=== PATIENT | female | born 1935 | race Caucasian/White ===

== ENCOUNTER 2019-02-16 16:09 | Emergency (ER) | payer MEDICARE, OTHER ==
[~2019-02-16] VITALS: Ht 152.4 cm; Wt 65.8 kg
[2019-02-16 16:44] LABS: URINE BILIRUBIN NEGATIVE (Negative); URINE BLOOD NEGATIVE (Negative); URINE CLARITY CLEAR; URINE COLOR YELLOW; URINE GLUCOSE-RANDOM NEGATIVE (Negative); URINE KETONES NEGATIVE (Negative); URINE LEUKOCYTES-REFLEX TRACE (Negative); URINE NITRITE-REFLEX NEGATIVE (Negative); URINE PROTEIN NEGATIVE (Negative); URINE SPECIFIC GRAVITY <= 1.005 (1.005-1.030); URINE UROBILINOGEN 0.2 E.U./dl (0.2-1.0)
[2019-02-16] MEDS ORDERED: PRAVACHOL40 MG PO (16:46)
[2019-02-16] MEDS ORDERED: XARELTO20 MG PO (16:46)
[2019-02-16] MEDS ORDERED: CALCIUM (16:47)
[2019-02-16] MEDS ORDERED: DILTIAZEM HCL90 MG PO (16:48)
[2019-02-16] MEDS ORDERED: GLUCOSAMINE-MS1 EAC4 PO (16:48)
[2019-02-16] MEDS ORDERED: FLECAINIDE ACET50 M1 PO (16:48)
[2019-02-16] MEDS ORDERED: PROTONIX40 M1 PO (16:49)
[2019-02-16] MEDS ORDERED: ANTIVERT25 MG PO (16:49)
[2019-02-16] MEDS ORDERED: OXYBUTYNIN 5 MG5 M2 (16:49)
[2019-02-16 16:53] LABS: BACTERIA-REFLEX None Seen /HPF (None Seen); CASTS None Seen /LPF (None Seen); CRYSTALS None Seen /LPF (None Seen); SQUAMOUS NONE SEEN /LPF (0-3); URINE RBC 0-2 Rare /HPF (0-2); URINE WBC-REFLEX 0-5 Rare /HPF (0-5)
[2019-02-16 16:57] LABS: ABSOLUTE EOSINOPHILS 0.2 thou/uL (0.0-0.7); ABSOLUTE LYMPHOCYTES 1.8 thou/uL (0.8-5.3); ABSOLUTE MONOCYTES 0.8 thou/uL (0.0-1.2); ABSOLUTE NEUTROPHILS 3.6 thou/uL (1.6-8.1); BASOPHILS 0.5 %; EOSINOPHILS 3.8 %; HEMATOCRIT 42.9 % (37.0-47.0); HEMOGLOBIN 14.6 gm/dL (12.0-15.0); LYMPHOCYTES 28.1 %; MCH 31.7 pg (26.0-34.0); MCHC 34.1 g/dL (28.0-37.0); MCV 92.9 fL (80.0-100.0); MONOCYTES 12.3 %; MPV 8.3 fl. (7.2-11.1); NUCLEATED RBCS 0 /100WBC; PLATELET COUNT* 244 thou/uL (150-400); POLYS 55.3 %; RBC 4.62 mil/uL (4.20-5.00); RDW-CV 13.9 % (10.5-14.5); WBC 6.5 thou/uL (4.0-11.0)
[2019-02-16 17:09] LABS: APTT 30.5 Seconds (25.0-31.3); PROTIME 10.4 Seconds (9.20-11.50)
[2019-02-16 17:12] LABS: CALCIUM 9.1 mg/dL (8.5-10.1); CREATININE 0.7 mg/dL (0.6-1.3); POTASSIUM 4.4 mmol/L (3.5-5.1)
[2019-02-16 17:16] LABS: ALBUMIN 3.7 g/dL (3.4-5.0); TOTAL BILIRUBIN 0.5 mg/dL (<0.1-1.0); TOTAL PROTEIN 6.9 g/dL (6.4-8.2)
[2019-02-16 18:14] VITALS: BP 138/74
--- NOTE | 2019-02-19 10:39 | EKG ---
[place] [address] ELECTROCARDIOGRAM REPORT Name: SADAF JIN Room: [facility]#: [id number] Admission: 02/16/19 Attend Phys: Discharge: 02/16/19 Date of : 39 Report #: [id number] THIS REPORT FOR: //name// [facility] ED Test Date: 2019-02-16 Test Time: 17:04:31 Pat Name: SADAF JIN Department: Room: Gender: F Manager Disaster Recovery: TIMBO : 1935 Requested By: Lorena Cano Order Number: [id number] MD: Sony Napier Measurements Intervals [place] Rate: 61 P: 62 SD: 233 QRS: 69 QRSD: 118 T: 32 QT: 539 QTc: 543 Interpretive Statements Sinus rhythm Prolonged SD interval Incomplete right bundle branch block No previous ECG available for comparison Electronically Signed On 02-19-2019 10:39:20 CDT by Sony Napier [email or web address] <ELECTRONICALLY SIGNED> By: Sony Napier MD, [facility] 02/19/19 1039 1704 1704 Sony Napier MD, FACC /EPI
== END 2019-02-16 18:15 | disposition home or self-care (01) ==
LOC: M.ERS 16:09
PROVIDERS: Nurse Practitioner Family
DX: D18.09 Hemangioma of other sites (principal); J84.10 Pulmonary fibrosis, unspecified; N28.1 Cyst of kidney, acquired; I48.91 Unspecified atrial fibrillation; Z95.0 Presence of cardiac pacemaker; Z88.8 Allergy status to other drugs, medicaments and biological substances; Z85.3 Personal history of malignant neoplasm of breast